=== PATIENT | female | born 1990 ===

== ENCOUNTER 2022-02-17 09:02 | Outpatient (CLI) | payer OTHER ==
[2022-02-17 09:53] VITALS: BP 102/66
--- NOTE | 2022-02-17 13:04 | Ultrasound Report ---
ULTRASOUND OBSTETRIC LIMITED ULTRASOUND BIOPHYSICAL PROFILE INDICATION / CLINICAL INFORMATION: wellbeing. Clinical Gestational Age (GA): 3 9.6 weeks.days COMPARISON: None available. FINDINGS: BREATHING MOVEMENT = 2 GROSS BODY MOVEMENT = 2 TONE = 2 QUALITATIVE AMNIOTIC FLUID VOLUME = 2 TOTAL BIOPHYSICAL SCORE = 8/8 HEART RATE (beats per minute): 147 AMNIOTIC FLUID INDEX (cm) = 9.4 (normal = 7-24 cm) PRESENTATION: Cephalic. ADDITIONAL FINDINGS: None. IMPRESSION: 1. Biophysical Score = 8/8 Signer Name: Panchito Yuan MD Signed: 02/17/2022 1:00 PM Workstation Name: [id number]
== END 2022-02-17 13:46 | disposition home or self-care (01) ==
LOC: TRG 09:02 → APU 09:04 → TRG 13:46
PROVIDERS: ATTEND Obstetrics & Gynecology
DX: Z34.83 Encounter for supervision of other normal pregnancy, third trimester (principal); Z3A.39 39 weeks gestation of pregnancy
CPT/HCPCS: 59025; 76815; 76819

== ENCOUNTER 2022-02-18 11:30 | Inpatient (IN) | payer SELFPAY ==
[2022-02-18] MEDS ORDERED: METOCLOPRAMIDE 10 MG/2 ML INJ IV SCH (15:00)
[2022-02-18] MEDS ORDERED: BICITRA ORAL LIQD 30ML PO SCH (15:00)
[2022-02-18] MEDS ORDERED: FAMOTIDINE 20 MG/2 ML INJ IV SCH (15:00)
[2022-02-18] MEDS ORDERED: OXYTOCIN DRIP 30 UNITS/500 ML BAG IV SCH ×3 (15:00→20:00)
[2022-02-18] MEDS ORDERED: ceFAZolin/Water 2 GM/20 ML 2 GM/20 ML SYRINGE IV NR (15:00)
[2022-02-18] MEDS: LACTATED RINGERS 1,000 ML IV SCH ×2 (17:52→17:55)
[2022-02-18 18:26] LABS: Basophils # (Auto) 0.1 K/mm3 (0.0-0.1); Basophils % (Auto) 1.1 % (0.0-1.8); Eosinophils # (Auto) 0.1 K/mm3 (0.0-0.4); Eosinophils % (Auto) 1.2 % (0.0-4.3); Hemoglobin 10.1 gm/dl (10.1-14.3); Lymphocytes # (Auto) 2.2 K/mm3 (1.2-5.4); Lymphocytes % (Auto) 25.3 % (13.4-35.0); Mean Corpuscular HGB Conc 34 % (30-34); Mean Corpuscular Volume 88 fl (79-97); Monocytes # (Auto) 0.8 K/mm3 (0.0-0.8); Monocytes % (Auto) 9.8 % (0.0-7.3); Platelet Count 196 K/mm3 (140-440); Red Blood Count 3.43 M/mm3 (3.65-5.03); Red Cell Distribution Width 14.6 % (13.2-15.2)
--- NOTE | 2022-02-18 19:42 | History and Physical Report ---
History of Present Illness Date of examination: 02/18/22 Date of admission: 02/18/22 14:34 Chief complaint: pt desires TOLAC and declines repeat c/section at this time History of present illness: at 40.2wks by LMP c/w U/Sound. care at [facility] and covered by [employer]. Pt states she had 3 successful vbacs uncomplicated and desires to this preg. Pt admits to feeling ctx, postive movement, denies headache or vag bleed or LOF. Past History Past Medical History: no pertinent history Past Surgical History: section (x1) - Obstetrical History Expected Date of Delivery: 02/16/22 Actual Gestation: 40 Week(s) 2 Day(s) : 7 Hx # Term Pregnancies: 5 (1 with hydrocephalus) Spontaneous Abortions: 1 Number of Living Children: 5 Medications and Allergies Allergies Allergy/AdvReac Type Severity Reaction Status Date / Time No Known Allergies Allergy Unverified 02/17/22 09:37 Active Meds: Active Medications Famotidine (Famotidine 20 Mg/2 Ml Inj) 20 mg IV ONCE@1500 MAYELIN Stop: 02/18/22 20:00 Lactated Ringer's (Lactated Ringers) 1,000 mls @ 2,250 mls/hr IV PREOP MAYELIN Stop: 02/19/22 15:27 Last Admin: 02/18/22 17:55 Dose: 2,250 mls/hr Oxytocin/Sodium Chloride (Pitocin/Ns 30 Unit/500ml) 30 units in 500 mls @ 0 mls/hr IV TITR MAYELIN; Protocol Review of Systems All systems: negative (intermittent ctx) - Vital Signs Vital signs: Vital Signs Pulse Pulse Ox 93 H 99 02/18/22 15:04 02/18/22 15:04 Temp Pulse Resp BP Pulse Ox 72 100 02/18/22 19:34 02/18/22 19:34 - Physical Exam Breasts: Positive: deferred Cardiovascular: Regular rate Lungs: Positive: Normal air movement Abdomen: Positive: soft Genitourinary (Female): Positive: normal external genitalia Uterus: Positive: normal size Extremities: Positive: normal - Obstetrical FHR: category 1 Cervical Dilatation: 2 Cervical Effacement Percentage: 50 station: -2 Uterine Contraction Pattern: Irregular Uterine Contraction Intensity: Mild Results Result Diagrams: 02/18/22 17:40 Abnormal lab results 02/18/22 Range/Units 17:40 RBC 3.43 L (3.65-5.03) M/mm3 Hct 30.0 L (30.3-42.9) % Cottle % (Auto) 9.8 H (0.0-7.3) % All other labs normal. Assessment and Plan Term, post dates preg, grandmultiparous with previous c/section x1 and desires TOLAC, previous successful x3 1. Admit to labor and delivery, discussed risks, benefits and alternatives of and consents signed 2. Will give double avalos balloon 80cc with favorable cervix 3. Will consider low dose pitocin if no ctx seen to a max of 10 4. BPP done 02/17/22 was 8/8 5. plan of care discussed; all questions encouraged and answered
[2022-02-18] MEDS ORDERED: miSOPROStol 200 MCG TAB PR PRN (19:50)
[2022-02-18] MEDS ORDERED: LIDOCAINE (2%) 20 MG/1 ML VIAL 20 ML MDV INFILTRATI ONE (19:50)
[2022-02-18] MEDS ORDERED: ACETAMINOPHEN 325 MG TAB PO PRN (19:50)
[2022-02-18] MEDS ORDERED: NalbUPHINE 10 MG/1 ML INJ IV PRN (19:50)
[2022-02-18] MEDS ORDERED: fentaNYL 100 MCG/2 ML INJ IV PRN (19:50)
[2022-02-18] MEDS ORDERED: PROMETHAZINE 25 MG RECT SUPP PR PRN (19:50)
[2022-02-18] MEDS ORDERED: LOPERAMIDE 2 MG CAP PO PRN (19:50)
[2022-02-18] MEDS ORDERED: OXYTOCIN 10 UNIT/1 ML INJ IM PRN (19:50)
[2022-02-18] MEDS ORDERED: ePHEDrine SULFATE 50 MG/1 ML INJ IV PRN (19:50)
[2022-02-18] MEDS ORDERED: MINERAL OIL 30 ML ORAL LIQD PO PRN (19:50)
[2022-02-18] MEDS ORDERED: METHYLERGONOVINE MALEATE 0.2 MG/ML VIAL IM PRN (19:50)
[2022-02-18] MEDS ORDERED: TERBUTALINE 1 MG/1 ML INJ SUB-Q PRN (19:50)
[2022-02-18] MEDS ORDERED: ONDANSETRON 4 MG/2 ML INJ IV PRN (19:50)
[2022-02-18] MEDS ORDERED: CARBOPROST TROMETHAMINE 250 MCG/1 ML INJ IM PRN (19:50)
[2022-02-18] MEDS ORDERED: LACTATED RINGERS 1,000 ML IV SCH (20:00)
--- NOTE | 2022-02-18 21:33 | Event Note ---
Date: 02/18/22 nurse called me to bedside of pt after she signed consents and now pt states she wants to go home and will return when she think she is in labor. [employer] #[id number] used and all the risks, benefits and alternatives, including leaving against med advice and also of her baby. Nurse also notified.
== END 2022-02-18 21:33 | disposition left against medical advice (07) | DRG 833 ==
LOC: APU 14:34 → LD 20:52
PROVIDERS: ADMIT Obstetrics & Gynecology; ATTEND Obstetrics & Gynecology
DX: O34.211 Maternal care for low transverse scar from previous cesarean delivery (principal); O48.0 Post-term pregnancy; Z3A.40 40 weeks gestation of pregnancy; Z53.29 Procedure and treatment not carried out because of patient's decision for other reasons
CPT/HCPCS: 36415; 76819; 85025; 86850; 86900; 86901; G0378; J7120